=== PATIENT | female | born 1930 | race African-American/Black ===

== ENCOUNTER 2017-02-22 14:26 | Emergency (ER) | payer MEDICARE ==
[2017-02-22 15:26] LABS: BASOPHILS 0.2 % (0-2); EOSINOPHILS 0.7 % (0-7); HEMATOCRIT 39.9 % (36.0-48.0); HEMOGLOBIN 13.1 g/dL (12-16); IMMATURE GRANULOCYTES 0.2 % (0-5); LYMPHOCYTES 28.8 % (15-50); MCH 31.6 pg (26.0-34.0); MCHC 32.8 g/dL (31.0-37.0); MCV 96.4 fL (80.0-100.0); MEAN PLATELET VOLUME 9.6 fL (7.4-10.4); MONOCYTES 3.8 % (2-11); NEUTROPHILS 66.3 % (40-80); RBC 4.14 10x6/uL (4.00-5.40); RDW 13.2 % (11.5-14.5); WBC 4.5 10x3/uL (4.8-10.8)
[2017-02-22 15:33] LABS: PLATELET COUNT 240 10x3/uL (130-400)
[2017-02-22 15:50] LABS: ALBUMIN 4.1 g/dL (3.4-5.0); ANION GAP 11.5 mmol/L (8-16); BILIRUBIN - TOTAL 0.43 mg/dL (0.2-1.3); CALCIUM 10.1 mg/dL (8.5-10.1); CARBON DIOXIDE 30.5 mmol/L (21.0-32.0); CREATININE - SERUM 1.6 mg/dL (0.6-1.3); PROTEIN - SERUM 7.9 g/dL (6.4-8.2)
[2017-02-22 16:17] LABS: APPEARANCE CLEAR (CLEAR); BILIRUBIN NEGATIVE (NEGATIVE); COLOR DK YELLOW (YELLOW); GLUCOSE NEGATIVE (NEGATIVE); KETONE NEGATIVE (NEGATIVE); LEUKOCYTE ESTERASE TRACE (NEGATIVE); NITRITE NEGATIVE (NEGATIVE); PROTEIN NEGATIVE (NEGATIVE); UROBILINOGEN NORMAL (NORMAL)
[2017-02-22 16:18] LABS: BACTERIA FEW /hpf (NONE SEEN); EPITHELIAL CELLS NSEEN /hpf (0-5); MUCUS >1+ /lpf (NONE SEEN); RED CELLS - URINE 0-5 /hpf (0-5); WHITE CELLS - URINE 0-5 /hpf (0-5)
== END 2017-02-22 18:57 | disposition home or self-care (01) ==
LOC: D.ER 14:26
PROVIDERS: Emergency Medicine
DX: E86.0 Dehydration (principal); R53.1 Weakness; I10 Essential (primary) hypertension; R00.1 Bradycardia, unspecified

== ENCOUNTER 2017-03-15 10:56 | Inpatient (IN) | payer MEDICARE ==
[~2017-03-15] VITALS: Ht 162.6 cm; Wt 63.7 kg
[2017-03-15 16:31] VITALS: BP 121/75; BMI 24.5
[2017-03-15 16:54] LABS: BASOPHILS 0.2 % (0-2); EOSINOPHILS 0.7 % (0-7); HEMATOCRIT 39.1 % (36.0-48.0); HEMOGLOBIN 13.1 g/dL (12-16); LYMPHOCYTES 33.9 % (15-50); MCH 31.6 pg (26.0-34.0); MCHC 33.5 g/dL (31.0-37.0); MCV 94.2 fL (80.0-100.0); MEAN PLATELET VOLUME 10.1 fL (7.4-10.4); MONOCYTES 7.9 % (2-11); NEUTROPHILS 57.3 % (40-80); PLATELET COUNT 268 10x3/uL (130-400); RBC 4.15 10x6/uL (4.00-5.40); WBC 5.4 10x3/uL (4.8-10.8)
[2017-03-15 17:05] LABS: ALBUMIN 4.2 g/dL (3.4-5.0); ANION GAP 14.6 mmol/L (8-16); BILIRUBIN - TOTAL 0.44 mg/dL (0.2-1.3); CALCIUM 10.4 mg/dL (8.5-10.1); CARBON DIOXIDE 25.3 mmol/L (21.0-32.0); CHOL - HDL RATIO 2.7 ratio (2.3-4.1); CREATININE - SERUM 1.7 mg/dL (0.6-1.3); HEMOGLOBIN A1C 6.2 % (4.8-6.0); LDL-HDL RATIO 1.4 ratio (1.5-3.5); POTASSIUM - SERUM 3.9 mmol/L (3.5-5.1); PROTEIN - SERUM 7.8 g/dL (6.4-8.2); THYROID STIMULATING HORMONE 1.18 uIU/mL (0.36-3.74)
--- NOTE | 2017-03-15 17:45 | NUR ---
PATIENT ADMITTED FROM HOME APPARENTLY SHE HAS HAD INCREASED CONFUSION, AGGRESSION AND HALLUCINATIONS. PATIENT AMBULATES INDEPENDENTLY. ON ASSESSMENT PATIENT IS ATTENDING TO HER VOICES. WHEN ASKED "WHO ARE YOU SPEAKING TO" PATIENT SAYS "I AM TALKING TO MYSELF" AFTER PATIENT'S FAMILY LEFT AND MANOHAR STARKS THE STOPPER SETTER LEFT THE NURSES STATION PATIENT DID SHOW SOME AGITATION AND IRRITABILITY. RT CAME TO DO AN EKG AND SHE BEHAVED CALMLY, BUT ONCE THIS STAFF WAS ALONE WITH HER SHE AGAIN BECAME AGITATED. SAYING "I AM NOT STAYING HERE, I AM NOT CRAZY" SHE WAS SPEKING TO HER VOICES AND SAYING "THEY THINK I AM CRAZY, BUT I AM NOT" PATIENT DOES PRESENT WITH SOME POOR SHORT TERM MEMORY RECALL. LABS DRAWN AND URINE OBTAINED FOR TESTING AND SENT TO LAB.
[2017-03-15] MEDS ORDERED: PRAVACHOL40 MG PO (17:48)
[2017-03-15] MEDS ORDERED: CARTIA XT240 MG PO (17:49)
[2017-03-15] MEDS ORDERED: ISOSORBIDE MONO30 M1 PO (17:49)
[2017-03-15] MEDS ORDERED: VITAMIN D250000 UNIT PO (17:50)
[2017-03-15] MEDS ORDERED: ARICEPT10 MG PO (17:51)
[2017-03-15] MEDS ORDERED: RESTORIL15 MG PO (17:53)
[2017-03-15] MEDS ORDERED: MULTIPLE VITAMI1 TA1 PO (17:54)
[2017-03-15] MEDS ORDERED: DOXEPIN HCL10 MG PO (17:54)
[2017-03-15] MEDS ORDERED: SUPHEDRINE 12-120 MG PO (17:55)
[2017-03-15] MEDS ORDERED: BAYER CHEWABLE81 MG PO (17:55)
[2017-03-15] MEDS ORDERED: MUCINEX600 MG PO (17:56)
[2017-03-15] MEDS ORDERED: NITROSTAT0.4 MG SL (17:56)
[2017-03-15] MEDS ORDERED: MEGACE400 MG/10 PO (17:58)
[2017-03-15 18:39] LABS: APPEARANCE HAZY (CLEAR); BILIRUBIN NEGATIVE (NEGATIVE); COLOR YELLOW (YELLOW); EPITHELIAL CELLS 0-5 /hpf (0-5); GLUCOSE NEGATIVE (NEGATIVE); KETONE NEGATIVE (NEGATIVE); LEUKOCYTE ESTERASE TRACE (NEGATIVE); NITRITE NEGATIVE (NEGATIVE); PROTEIN 1+ mg/dL (NEGATIVE); SPECIFIC GRAVITY 1.025 (1.005-1.020); UROBILINOGEN NORMAL (NORMAL); WHITE CELLS - URINE 0-5 /hpf (0-5)
[2017-03-15 18:40] LABS: BACTERIA FEW /hpf (NONE SEEN); MUCUS >1+ /lpf (NONE SEEN); RED CELLS - URINE RARE /hpf (0-5)
--- NOTE | 2017-03-15 20:30 | NUR ---
RECEIVED IN DAYROOM SITTING IN RECLINER. AWAKE AND ALERT. CALM AND COOPERATIVE WITH ASSESSMENT. ADMINISTER PRESCRIBED MEDS. COMPLIANT WITH TAKING MEDS. MONITOR FOR SAFETY AND CHANGES. CONTINUE POC.
[2017-03-15 22:04] VITALS: BP 157/82
[2017-03-16 10:16] VITALS: BMI 24.3
[2017-03-16 13:17] VITALS: BMI 24.4
--- NOTE | 2017-03-16 13:43 | NUR ---
Received this am alert and oriented to self only, wandering on unit. Redirect and reorient. Encourage group participation and monitor safety. No evidence of reorientation, patient walks around talking to herself, auditory halluniations that she is attending to. Difficulty to redirect and refocus. Observed group, and refused her lunch. Was cooperative and compliant with medications. Safety maintained. Continue plan of care.
[2017-03-16 19:30] VITALS: BP 117/68
--- NOTE | 2017-03-17 02:06 | NUR ---
B) Recieved patient in the dinning room ambulating independandly, alert and oriented to self, responds to name and follows instructions, wanders at times, I) Administered perscribed medications, monitored for safety, R) Medication compliant, redirects easlily, P) Continue plan of care.
[2017-03-17 06:12] LABS: RAPID PLASMA REAGIN Non Reactive (Non Reactive)
[2017-03-17 07:20] LABS: FOLATE (FOLIC ACID) - SERUM >20.0 ng/mL (>3.0)
[2017-03-17 08:53] VITALS: BP 122/55
--- NOTE | 2017-03-17 11:04 | NUR ---
B) PATIENT AWAKE AND ALERT, SHE WOULD NOT ALLOW STAFF TO BRUSH HER HAIR, SHE IS TALKING AND TALKING TO UNSEEN OTHERS, SHE AMBULATES INDEPENDENTLY. SHE DID NOT EAT HER FOOD, BUT SHE IS DRINKING HER ENSURE. I) PROVIDE PRESCRIBED MEDS. R) PATIENT IS COMPLIANT WITH MEDS, BUT CONTINUES TO TALK TO UNSEEN OTHERS. P) CONTINUE POC.
--- NOTE | 2017-03-17 11:51 | PSY ---
PATIENT NAME:SARAHI GAR MEDICAL RECORD: [id number] : 34 LOCATION:[facility] ADMISSION DATE: 03/15/17 ACCOUNT: [id number] PSYCHIATRIC EVALUATION DATE OF EVALUATION: 03/16/17 Psychiatric Evaluation IDENTIFYING DATA: The patient is 86 years old and she is admitted to the hospital on a voluntary basis. CHIEF COMPLAINT: Agitation. HISTORY OF PRESENT ILLNESS: The patient lives in a local intermediate and has an established diagnosis of dementia. She has recently become acutely worse with a lot of confused, agitated behavior. She has been actively hallucinating, aggressive with staff and paranoid. She has also been very aggressive and disruptive with being redirected. PAST MEDICAL HISTORY: Significant for hypertension. PAST PSYCHIATRIC HISTORY: Significant for dementia. ALLERGIES: SULFA. CURRENT MEDICATIONS: Include Pravachol, isosorbide, Cartia, Aricept, doxepin, aspirin, Sudafed, Mucinex and Megace. FAMILY HISTORY: Unknown. SOCIAL HISTORY: The patient is . She apparently was recently admitted to a intermediate or has been living alone, the story is confusing. Once, the patient says she lives at home alone, but I just cannot envision that given how impaired she is and then there are some notes from the staff indicating that she was admitted to a intermediate and had these kind of agitated behaviors. I am unclear on the history at this point, but it can easily be remedied. It is just that the patient is not reliable, I do not have the resources and she just got here yesterday evening. MENTAL STATUS EXAMINATION: The patient is awake, alert and oriented to person and place, but not to time or situation. Her mood is anxious. Her affect is constricted. Thought processes are disorganized and she is uncooperative with mental status testing, but by inference, I can say her memory, concentration and abstraction abilities are significantly impaired. She denies that she would actively seek to harm herself or others. She also denies overt psychotic symptoms. ASSETS: Supportive family members. LIABILITIES: Limited insight. 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 AXIS II: None. AXIS III: Hypertension and coronary artery disease. AXIS IV: Moderate stressors. AXIS V: Global assessment of functioning is 30. PLAN: At this time, the patient is admitted to the hospital for a comprehensive medical, psychological, and social evaluation. She will be treated with both mood-stabilizing and memory-enhancing medications. Her long-term prognosis is guarded. TRANSINT:[id number] Voice Confirmation ID: [id number] DOCUMENT ID: [id number] LISA MCCONNELL MD at 1151 CC: [id number] DICTATION DATE: 03/16/17 173 BOBCAT DRIVER/LABOR: 03/16/171951 ADM IN [place] [id number] [place] [id number]
--- NOTE | 2017-03-17 13:53 | NUR ---
PATIENT REFUSED LUNCH, SHE WOULD NOT EVEN GO TO THE DINING ROOM. SHE IS STEADILY TALKING AND TALKING TO UNSEEN OTHERS AND IF STAFF ASKE HER WHO SHE IS TALKING TO SHE WILL SAY "MYSELF" BUT PATIENT IS TALKING ALL DAY LONG TO UNSEEN OTHERS.
--- NOTE | 2017-03-17 16:06 | NUR ---
DAUGHTER HERE VISITING AND SHE FOUND FOUR PILLS IN HER MOTHER'S POCKET. SHE WANTS TO PASS IT ON TO EVERYONE TO PLEASE WATCH HER TAKE HER PILLS OR CRUSH THEM IN CHOCOLATE ICE CREAM.
--- NOTE | 2017-03-17 20:45 | NUR ---
RECEIVED IN DINING ROOM. WALKING AROUND TALKING TO UNSEEN PERSON CONSTANTLY. ADMINISTER PRESCRIBED MEDS. VSS, MEDICATION COMPLIANT. RELUCTANT TO GGO TO BED. JUST WANTED TO WALK AROUND UNIT. ARGUEMENTATIVE AT TIMES. CONTINUE PLAN OF CARE.
--- NOTE | 2017-03-18 14:11 | NUR ---
B) PATIENT IS ISOLATING IN DINING AREA, SHE WOULD NOT ALLOW STAFF TO ASSIST HER WITH ADL'S TODAY, SHE REFUSED HER MEDS THIS AM, SHE DID EAT 5% OF LUNCH, DRANK AN ENSURE, MILK AND A LEMON WALKER RIVER DRINK. SHE IS TALKING TO UNSEEN OTHERS. SHE AMBULATES INDEPENDENTLY. I) PROVIDE PRESCRIBED MEDS. R) PATIENT DID NOT TAKE HER AM MEDS. PATIENT IS NOT INTERACTING WITH STAFF OR PEERS. P) CONTINUE POC.
--- NOTE | 2017-03-18 14:20 | NUR ---
PT WAS VERY ANXIOUS BEFORE BREAKFAST AND DID NOT WANT TO LEAVE HER ROOM. PT WAS YELLING AT STAFF AND SAYING THAT SHE WAS NOT READY FOR BREAKFAST AND THAT SHE WAS STAYING IN HER ROOM TODAY. STAFF TRIED MULTIPLE TIMES TO REDIRECT PT AND GET PT TO WALK TO THE DAY ROOM. PT CONTINUED TO DENY AND TRIED TO HIT STAFF WITH HER SHOE. WHEN NURSE CAME IN TO TRY AND REDIRECT- PT TRIED TO HIT NURSE AND CONTINUED TO SCREAM AT STAFF TO GET OUT OF HER ROOM AND THAT SHE WAS NOT LEAVING HER ROOM. PT COULD NOT BE REDIRECTED AND CONTINUED TO SCREAM AT AND TRY TO HIT STAFF WITH HER SHOES AND KICK AND PUNCH AT STAFF. SECURITY WAS CALLED TO HELP ESCORT PT TO THE DAY ROOM. MULTIPLE TIMES ON THE WAY TO DAY ROOM WE OFFERED TO LET PT WALK BY HER SELF AND SHE WOULD AGAIN SWING AT STAFF TRYING TO HIT THEM. ONCE PT WAS IN DAY ROOM SHE CONTINUED TO SCREAM. NURSE TRIED TALKING TO PT AND TO REDIRECT PT. PT COULD NOT BE CALMED DOWN AND CONTINUED TO ESCALTE WITH HER YELLING. PT WAS GIVEN 0.5 MG OF ATIVAN FOR ANXIETY AT 8:50. PT SAT IN RECLINER CHAIR-"NOT RECLINED" AND DID CALM HERSELF DOWN AFTER ABOUT 15 MINUTES. PT HAS CONTINUED TO FUSS UNDER HER BREATH AND COMPLAIN TO UNSEEN OTHERS ABOUT STAFF BUT HAS NOT BEEN YELLING OUT LOUD OR TRYING TO HIT ANYONE ELSE.
--- NOTE | 2017-03-18 17:09 | NUR ---
PATIENTS DAUGHTER CAME TO VISIT AND APPARENTLY PATIENT IS MISSING TWO HANDKERCHIEFS, SHE SAYS SHE IS MISSING A BLACK KNIT TYPE HAT THAT SHE WEARS TO SLEEP IN. THIS NURSE LOOKED THROUGH THE OTHER PATIENTS BELONGINGS, LOOKED THROUGH THE DIRTY LINEN BAGS, LOOKED UNDER PATIENTS MATTRESS. LOOKED IN THE STORAGE ROOM IN HER BIN.
[2017-03-18 21:17] VITALS: BP 154/87
--- NOTE | 2017-03-19 03:42 | NUR ---
B) Recieved patient in the dinning room, alert and oriented to self, ambulate independly, restless and wanders at times, I) Administered perscribed medications, monitored for falls and safety, R) Medication compliant, mild exit seeking, P) Continue plan of care.
[2017-03-19 07:58] VITALS: BP 133/66
--- NOTE | 2017-03-19 12:04 | NUR ---
Patient initially agitated and refusing to get out of bed to go down to dining room, kept refusing and not understanding instructions that were given. Slowly talked with patient and guided her to bathroom patient required step by step instruction on how to pull her pants down and sit on toilet, allowed patient to use restroom, and redirected her to ambulate with staff to dining room, very slow processing of directions without demonstration, demonstrated to patient how to sit in WC, and then patient cooperatative and rolled down to dining room. Patient sat at dining room table refused to eat, refused assistance but did drink an ensure. Redirect and reorient. Monitor safety. Oriented to self only, difficulty with conversation and directions, no evidence of reorientation. Constant talking and attending to unseen person,to point sometimes she is yelling and arguing with them. No aggression toward staff. Safety maintained. Continue plan of care.
--- NOTE | 2017-03-19 13:02 | NUR ---
Patient signs of anxiety AEB: pacing in romero way, banging/puhing on doors and windows, scanning vision and pressured voice also making states to unseen people " I'm going to kill somebody." Prn Ativan 0.5 mg given IM, uncooperativew ith administration by attempting to be combative. Successful injection. Safety maintained and monitored.
--- NOTE | 2017-03-19 13:04 | NUR ---
Paitent sitting in chair, quiet drinking an Ensure, no anxiety assessed no aggression noted. Safety maintained.
--- NOTE | 2017-03-19 14:05 | PN ---
PATIENT:SARAHI GAR MEDICAL RECORD: [id number] LOCATION:[facility] ADMISSION DATE: 03/15/17 PROGRESS NOTE DATE OF SERVICE: 03/17/2017 SUBJECTIVE: The patient's case was discussed with staff. She has no new complaint. OBJECTIVE: The patient is in good behavioral control with poor insight about her condition. She tolerates her medicines reasonably well. She is sleeping well, but not eating at all. She does drink multiple bottles of Ensure each day, but this is hardly adequate. She is taking Megace, which will hopefully stimulate her appetite. She is not in any acute danger, but obviously this is an unsustainable pattern long-term. TRANSINT:[id number] Voice Confirmation ID: [id number] DOCUMENT ID: [id number] LISA MCCONNELL MD at 1405 CC: [id number] DICTATION DATE: 03/17/17 1156 GROUND HOST/HOSTESS: 03/17/17 1204 ADM IN [place] [id number] [place] [address]
--- NOTE | 2017-03-19 17:32 | NUR ---
Patient again with signs of anxiety, pressure escalated voice, scanning vision, and pacing around. Noted to have disrobed in kitchen yelling at unseen people.
--- NOTE | 2017-03-19 19:48 | NUR ---
RECEIVED IN DAYROOM. SITTING IN CHAIR. CALM AND COOPERATIVE WITH CARE AND ASSESSMENTS. CONFUSED. NO SIGNS OF HALLUCINATIONS. REDIRECT AND REORIENT NEEDED. CONTINUES TO SIT QUIETLY AT THIS TIME. CONTINUE PLAN OF CARE
[2017-03-19 20:13] VITALS: BP 114/71
[2017-03-20 07:43] VITALS: BP 126/68
--- NOTE | 2017-03-20 14:44 | PN ---
PATIENT:SARAHI GAR MEDICAL RECORD: [id number] LOCATION:[facility] ADMISSION DATE: 03/15/17 PROGRESS NOTE DATE OF SERVICE: 03/19/2017 SUBJECTIVE: The patient's case was discussed with staff. She has no new complaint. OBJECTIVE: The patient denies intent to harm herself or others. She generally tolerates her medicines well. ASSESSMENT: No change in diagnoses. PLAN: The patient had some active hallucinations and did require p.r.n. medications about an hour and a half before I saw her. At that time, she was actively hallucinating and agitated. The patient is not eating very well. Her sleep is only minimally acceptable. Based on this, I am going to change her antipsychotic medicine from Trilafon to Zyprexa. Hopefully, the Zyprexa will help with her psychotic symptoms and may stimulate her appetite a little. Her long-term prognosis is guarded. Unfortunately, her dementia is advanced. TRANSINT:[id number] Voice Confirmation ID: [id number] DOCUMENT ID: [id number] LISA MCCONNELL MD at 1444 CC: [id number] DICTATION DATE: 03/19/17 1444 HUMAN RESOURCES BENEFITS MANAGER: 03/19/17 1801 ADM IN [place] [id number] [place] [address]
--- NOTE | 2017-03-20 16:27 | NUR ---
Received this am alert and oriented to self only, cooperative with getting up and attending to ADL with assist. Redirect and reorient. Sits in chair talking to unseen person, attending to the hallucinations yelling becoming agitated and angry at times. Briefly diod become combative with activity directornwhsheryl she attempted to groom her after lunch, easily redirected and ceased behavior. No evidence of reorientation, safety maintained. Continue plan of care.
[2017-03-20 19:30] VITALS: BP 135/88
--- NOTE | 2017-03-20 23:06 | NUR ---
RECEIVED IN HALLWAY OUTSIDE OF NURSES STATION. YELLING OUT. COMBATIVE WITH STAFF AND PEERS. ATTEMPT TO REDIRECT AND REORIENT. PRN ATIVAN 0.5 MG AND HALDOL 2 MG IM GIVEN. COOPERATIVE WITH VITALS EXCEPT TEMP. RESTING IN RECLINER AT NURSES STATION AT THIS TIME. CONTINUE PLAN OF CARE
[2017-03-21 08:14] VITALS: BP 102/53
--- NOTE | 2017-03-21 13:41 | NUR ---
Received this am asleep in chery chair, awakes to name. She is sleepy and zayas not stay awake to safely take her medications. Tech attempted to feed her her breakfast, she smiles at tech but barely will eat when feed per staff, chocolate ensure supplement drink given. Tech attempts to give patient a shower, patient did become agitated and combative with showering, following shower, she sat in chery chair and fatmata talked to herself until she went back to sleep. Continues with difficulty with redirection and conversation, refuses attempts to be feed only consuming 10 % Safety maintained. Continue plan of care.
[2017-03-21 20:15] VITALS: BP 137/68
--- NOTE | 2017-03-22 00:36 | NUR ---
B) Recieved patient in her room alert and oriented to self, calm and cooperative, friendly and thankful to staff, I) Administered perscribed medications, monitored for safety and falls, R) Medication compliant, pleasant P) Continue plan of care.
[2017-03-22 13:06] VITALS: BMI 24.3
--- NOTE | 2017-03-22 14:56 | NUR ---
B) PATIENT IS CONFUSED, ORIENTED TO HER NAME, CONTINUES TO TALK TO UNSEEN OTHERS AND GETS IRRITABLE IF SHE IS INTERRUPTED. PATIENT SPILLED AN ENSURE ON HERSELF SHE ACCUSED SOMEONE POURING WATER ON HER, TRIED TO EXPLAIN AND REASON, BUT PATIENT WOULD NOT LISTEN. PATIENT CAN AMBULATE SHE IS UNSTEADY TODAY. I) PROVIDE PRESCRIBED MEDS. R) PATIENT IS COMPLIANT WITH MEDS TODAY. P) CONTINUE POC.
[2017-03-22 19:48] VITALS: BP 140/79
--- NOTE | 2017-03-23 02:03 | NUR ---
B) recieved patient in the day room alert and oriented to self, calm and cooperative with care, I) Administered perscribed medications, monitored for safety, R) Medication compliant, resting quietly, P) Continue plan of care.
--- NOTE | 2017-03-23 13:00 | NUR ---
B) PATIENT IS AWAKE AND SHE IS DRINKING FLUIDS, SHE HAS NOT BEEN TRYING TO FIGHT WITH STAFF, HELD HER AM XANAX SHE HAS BEEN TOO SLEEPY THE PAST COUPLE OF DAYS. I) PROVIDE PRESCERIBED MEDS. R) PATIENT IS COMPLIANT WITH MEDS, STAFF DID CRUSH AND PUT IT IN HER ENSURE. P) CONT POC.
[2017-03-23 15:09] VITALS: BP 117/66
[2017-03-23 19:00] VITALS: BP 127/62
--- NOTE | 2017-03-23 21:50 | NUR ---
ORIENTED TO PERSON ONLY. PT CONTINUES TO HAVE CONVERSATIONS WITH UNSEEN OTHERS. AGITATED DURING ASSESSMENT. REDIRECTED TO REALITY BASED THINKING BUT NO EVIDENCE OF RETAINING. FALL PRECAUTIONS MAINTAINED. WILL CONTINUE TO MONITOR AND CONTINUE WITH PLAN OF CARE.
[2017-03-24 10:42] VITALS: BP 120/51
--- NOTE | 2017-03-24 13:43 | NUR ---
B) PATIENT IS AWAKE, ORIENTED TO SELF ONLY. SHE IS TALKING TO HERSELF AND INTERACTING WITH STAFF AT TIMES. PATIENT HAS WALKED TODAY, BUT TRANSFERS WITH STAFF. SHE DOES NOT FOLLOW DIRECTIONS. I) PROVIDE PRECRIBED MEDS. R) PATIENT IS TAKING HER MEDS CRUSHED IN HER ENSURE. R) PATIENT IS NOT EATING, BUT WILL DRINK. P) CONTINUE POC.
[2017-03-24 19:30] VITALS: BP 102/45
--- NOTE | 2017-03-24 21:00 | NUR ---
RECEIVED IN DAYROOM SITTING IN RECLINER. LETHARGIC, BUT ANSWERS APPROPRIATELY. ADMINISTER MEDS CRUSHED IN APPLESAUCE. MEDICATION COMPLIANT. ASSESSMENT COMMPLETED PER FLOW. NO AGGRESSION NOTED TONIGHT. NIECY CONT POC.
[2017-03-25 07:00] VITALS: BP 126/73
[2017-03-25 19:30] VITALS: BP 141/62
--- NOTE | 2017-03-25 20:36 | NUR ---
PT IS RECEIVED IN W/C AT NURSE STATION. PT IS ALERT AND ORIENTED TO SELF ONLY. PT HAS AUDITORY HALLUCINATIONS AND IS SEEN TALKING TO UNSEEN OTHERS. PT IS REDIRECTED AND REORIENTED NEEDED. PT DENIES PAIN. NO AGGRESSION IS NOTED. PT IS COOPERATIVE WITH STAFF AND IS COMPLIANT WITH MEDS AND CARE. WILL CONTINUE TO MONITOR AND CONTINUE WITH PLAN OF CARE.
--- NOTE | 2017-03-25 20:46 | NUR ---
RECEIVED IN DINING AREA. SITTING IN A WHEELCHAIR. CONFUSED. CALM AND COOPERATIVE WITH CARE AND ASSESSMENTS. CALM AND COOPERATIVE WITH CARE AND ASSESSMENTS. NO SIGNS OF AGGRESSION. TALKS TO SELF CONSTANTLY. REDIECT AND REORIENT NEEDED. CONTINUES TO SIT IN WHEELCAHIR. TALKING TO SELF. CONTINUE PLAN OF CARE
[2017-03-26 10:13] VITALS: BP 117/68
[2017-03-26 16:11] VITALS: Ht 162.6 cm; Wt 63.7 kg
--- NOTE | 2017-03-26 16:12 | NUR ---
ORIENTED TO PERSON ONLY. PT CONTINUES TO TALK TO UNSEEN OTHERS. DIFFICULT TO REDIRECT. CONTINUOUS REDIRECTION DONE WITH NO EVIDENCE OF RETAINING. NO AGGRESSION NOTED. MEDICATIONS GIVEN ORDERED. FALL PRECAUTIONS MAINTAINED. WILL CONTINUE TO MONITOR AND CONTINUE WITH PLAN OF CARE.
[2017-03-26 19:30] VITALS: BP 110/67
--- NOTE | 2017-03-26 20:01 | NUR ---
RECEIVED IN DAYROOM. SITTING IN WHEELCHAIR. CALM AND COOPERATIVE WITH CARE AND ASSESSMENTS. CONFUSED. NO SIGNS OF HALLUCINATIONS. NO SIGNS OF AGGRESSIONS. REDIRECT AND REORIENT NEEDED. CONTINUES TO SIT QUIETLY IN WHEELCHAIR. CONTINUE PLAN OF CARE
--- NOTE | 2017-03-26 22:41 | NUR ---
HIGH ANXIETY, COMBATIVE WITH REDIRECTION. PRN ATIVAN 0.5 MG IM GIVEN
--- NOTE | 2017-03-27 11:06 | NUR ---
B) PATIENT IS AWAKE, BUT SHE DID NOT EAT BREAKFAST, SHE DID EAT ICE CREAM. SHE DID AMBULATE FROM THE DAY ROOM WITH PT AND A WALKER. PATIENT IS CONFUSED. I) PROVIDE PRESCRIBED MEDS. R) PATIENT IS COMPLIANT WITH MEDS CRUSHED IN ICE CREAM. P) CONTINUE POC.
[2017-03-27 11:12] VITALS: BP 104/47
--- NOTE | 2017-03-27 14:49 | NUR ---
Received this am alert and oriented to name only, resting off and on throughtout the morning, did have a prn injection last nigh around 2300. Arouses to name, feed breakfast but only ate very little. Cooperative with physical therapy. No aggression. No evidence of reorientation. Participated in one on one group of singing. Safety maintained. Continue plan of care.
--- NOTE | 2017-03-27 20:07 | NUR ---
RECEIVED IN DAYROOM. SITTING IN A RECLINER SINGING. CALM AND COOPERATIVE WITH CARE AND ASSESSMENTS. NO SIGNS OF HALLUCINATIONS. ENCOURAGE TO EXPRESS NEEDS. REORIENT NEEDED. CONTINUES TO SIT QUIETLY IN RECLINER. CONTINUE PLAN OF CARE
--- NOTE | 2017-03-28 12:12 | NUR ---
PT CONTINUES TO HALLUCINATE AND WAS HEARD TALKING TO UNSEEN OTHERS. ORIENTED TO PERSON ONLY. PT REFUSED HER MEDICATIONS, AND SHE STATED, "I HAVE HAD ENOUGH MEDICATIONS". I EDUCATED ON IMPORTANCE OF MEDICATIONS BUT SHE CONTINUED TO REFUSE. PT IS VERY LETHARGIC AND CONTINUE TO SLEEP BUT SHE DOES WAKEN EASILY. NO AGGREESSION NOTED. FALL PRECAUTIONS MAINTAINED. WILL CONTINUE TO MONITOR AND CONTINUE WITH PLAN OF CARE.
[2017-03-28 19:30] VITALS: BP 135/72
--- NOTE | 2017-03-28 20:30 | NUR ---
RECEIVED IN ROOM LYING IN BED WITH EYES CLOSED. RESPIRATIONS EVEN AND UNLABORED. ASSESSMENT COMPLETED PER FLOW SHEET. REFUSED MEDICATIONS. HALLUCINATIONS LESS. REDIRECT AND AND REORIENT NEEDED. CONTINUE POC.
[2017-03-29 08:00] VITALS: BP 125/71
--- NOTE | 2017-03-29 13:29 | NUR ---
ORIENTED TO PERSON ONLY. PT CONTINUES TO HALLUCINATE BUT THEY HAVE DECREASE IN FREQUENCY. NO AGGRESSION NOTED. PT IS A FEEDER BUT DOES WELL WITH STAFF ASSISTANCE. MEDICATIONS GIVEN ORDERED. FALL PRECAUTIONS MAINTAINED. WILL CONTINUE TO MONITOR AND CONTINUE WITH PLAN OF CARE.
--- NOTE | 2017-03-29 14:02 | NUR ---
Nutrition Follow Up: Pt is eating 14% meal avg on a regular diet. Wt stable. +BM 03/28/17. No new labs to review. Meds noted including LESLI Ramirez. Rec continue current diet. Rec continue appetite stimulant. RD following.
--- NOTE | 2017-03-29 20:29 | NUR ---
RECEIVED PT SITTING IN RECLINER, PT TALKING TO SELF, ORIENTED PT TO PLACE, MARIE VU RN, CHARGE NURSE ADM 2100 MEDS CRUSHED IN APPLE SAUCE, PT COOPERATIVE IN TAKING MEDS, WILL CONTINUE POC
[2017-03-29 21:53] VITALS: BP 118/68
[2017-03-30 07:59] VITALS: BP 131/68
--- NOTE | 2017-03-30 09:30 | NUR ---
ALERT AND ANSWERING QUESTIONS TODAY. NO AGGRESSION NOTED. SITTING IN RECLINER QUIETLY. ADMINISTERED PRESCRIBED MEDS. MEDICATION COMPLIANT. VSS. FALL PRECAUTIONS MAINTAINED. WILL CONTINUE PLAN OF CARE.
--- NOTE | 2017-03-30 10:30 | NUR ---
AMBULATED WELL WITH PHYSICAL THERAPY USING A WALKER.
--- NOTE | 2017-03-30 18:02 | NUR ---
RECEIVED IN DAYROOM AREA. SITTING IN A RECLINER WITH STAFF AT HER SIDE. VERY CONFUSED. TALKING TO HERSELF CONSTANTLY. CALM AND COOPERATIVE WITH CARE AND ASSESSMENTS. NO SIGNS OF AGGRESSION. REDIRECT AND REORIENT NEEDED. CONTINUE PLAN OF CARE
[2017-03-30 19:30] VITALS: BP 153/84
--- NOTE | 2017-03-31 09:41 | NUR ---
PT CONTINUOUSLY MUMBLES TO HERSELF. UPON ASKING HER WHO SHES TALKING TO SHE STATES "IM NOT TALKING TO YOU, SO GO AWAY SO I CAN GO HOME" ATTEMPTED TO REORIENT PT AND SHE VERBALIZED UNDERSTANDING HOWEVER STILL CONTINUES TO MUMBLE TO HERSELF. PT REFUSED TO EAT ANY BREAKFAST AND REFUSED HER MORNING MEDICATIONS. TALKED PT INTO TAKING HER MOST IMPORTANT ONES BEING HER HEART MEDICATIONS HOWEVER SHE ONLY SWALLOWED 3 TOTAL AND REFUSED ANYTHING ELSE. PT SITTING UP IN CHAIR RESTING IN DAYROOM. WILL CTM.
--- NOTE | 2017-03-31 09:44 | NUR ---
CARDIZEM WAS GIVEN HOWEVER COMPUTER FROZE UP AND LOCKED ME OUT AND WILL NOT LET ME DOCUMENT IT AGAIN.
[2017-03-31 09:57] VITALS: BP 133/69
--- NOTE | 2017-03-31 11:05 | NUR ---
PT SITTING UP IN RECLINER IN DAYROOM STILL MUMBLING CONSTANTLY TO HERSELF. REFUSES TO TAKE MEDS STILL AND STATES "GIVE ME BACK MY STUFF SO I CAN GO HOME, IM LEAVING TODAY LADY" WILL CTM.
[2017-03-31 19:30] VITALS: BP 113/69
--- NOTE | 2017-04-01 00:53 | NUR ---
B) Recieved patient in the day room, alert and oriented to self, talks frequently to to unseen others, responds to name, follows instructions, I) Administered perscribed medications, monitored for falls and behaviors, R) Medication compliant, resting quietly now, P) Continue plan of care.
[2017-04-01 07:00] VITALS: BP 111/68
--- NOTE | 2017-04-01 09:30 | NUR ---
RECEIVED IN RECLINER. AWAKE AND ALERT, BUT CONFUSED. ADMINISTER ORDERED MEDICATIONS. NO AGGRESSION NOTED. COMPLIANT WITH TAKING MEDICATIONS. MONITOR FOR FALLS AND SAFETY. WILL CONTINUE PLAN OF CARE.
--- NOTE | 2017-04-01 19:59 | NUR ---
RECEIVED IN DAYROOM. SITTING IN A WHEELCHAIR WITH PEERS AT HER SIDE. NOT SOCIALIZING. CONFUSED. NO SIGNS OF HALLUCIANTIONS. REDIRECT AND REORIENT NEEDED. CONTINUES TO SIT QUIETLY IN DAYROOM. CONTINUE PLAN OF CARE
[2017-04-01 21:39] VITALS: BP 129/58
[2017-04-02 07:00] VITALS: BP 122/58
--- NOTE | 2017-04-02 10:15 | NUR ---
PATIENT REFUSED ALL MEDICATION EXCEPT CARDIZEM.
--- NOTE | 2017-04-02 12:00 | NUR ---
ORIENTED TO PERSON ONLY. PT IS COMBATIVE WITH CARE. YELLING AND CURSING AT STAFF. PT HAS BEEN SEEN TALKING TO UNSEEN OTHERS. REDIRECTED NEEDED BUT NO EVIDENCE OF RETAINING. PT EDUCATED ON APPROPRIATE BEHAVIOR. PT DID TAKE HALF OF HER MEDICATIONS BUT REFUSED THE OTHERS. FALL PRECAUTIONS MAINTAINED. WILL CONTINUE TO MONITOR AND CONTINUE WITH PLAN OF CARE.
--- NOTE | 2017-04-02 19:07 | NUR ---
STACI ADHIKARI CALLED AT 1900 DUE TO PT NOT BREATHING AND NO PULSE. CODE TEAM ARRIVED WITH DR. STONE FROM ED. FAMILY NOTIFIED AND ON THEIR WAY.
--- NOTE | 2017-04-02 19:38 | NUR ---
PT DISCHARGED TO ICU. FAMILY FOLLOWED. FAMILY UPDATED ON PT'S CONDITION.
[2017-04-02] MEDS ORDERED: ABILIFY2 MG PO (21:12)
[2017-04-02] MEDS ORDERED: VITAMIN D5000 UNIT PO (21:16)
[2017-04-02] MEDS ORDERED: TIAZAC/CARDIZE240 M1 PO (21:16)
[2017-04-02] MEDS ORDERED: ARICEPT10 MG PO (21:17)
[2017-04-02] MEDS ORDERED: ISOSORBIDE MONO30 M1 PO (21:18)
[2017-04-02] MEDS ORDERED: MUCINEX600 MG PO (21:18)
[2017-04-02] MEDS ORDERED: MULTI-DAY VITAM1 TAB PO (21:19)
[2017-04-02] MEDS ORDERED: MEGACE40 MG PO (21:19)
[2017-04-02] MEDS ORDERED: PRAVACHOL40 MG PO (21:20)
[2017-04-02] MEDS ORDERED: HALDOL5 MG/ML IM (21:23)
[2017-04-02] MEDS ORDERED: HALOPERIDOL2 MG PO (21:24)
[2017-04-02] MEDS ORDERED: ATIVAN0.5 MG PO (21:25)
[2017-04-02] MEDS ORDERED: ATIVAN2 MG/ML IM (21:26)
[2017-04-02] MEDS ORDERED: NITROSTAT0.4 MG SL ×2 (21:26→21:27)
== END 2017-04-02 19:16 | disposition short-term general hospital (02) | DRG 56 ==
LOC: D.PSYCH 10:56
PROVIDERS: ADMIT Psychiatry & Neurology Psychiatry
PROC: 5A12012 Performance of Cardiac Output, Single, Manual (ICD-10-PCS; principal; 2017-04-02)
PROC: 0BH17EZ Insertion of Endotracheal Airway into Trachea, Via Natural or Artificial Opening (ICD-10-PCS; 2017-04-02)
PROC: 06HM33Z Insertion of Infusion Device into Right Femoral Vein, Percutaneous Approach (ICD-10-PCS; 2017-04-02)
DX: G30.9 Alzheimer's disease, unspecified (principal); I46.9 Cardiac arrest, cause unspecified; F05 Delirium due to known physiological condition; F02.81 Dementia in other diseases classified elsewhere, unspecified severity, with behavioral disturbance; I10 Essential (primary) hypertension; E78.5 Hyperlipidemia, unspecified; E53.8 Deficiency of other specified B group vitamins; E55.9 Vitamin D deficiency, unspecified; I25.10 Atherosclerotic heart disease of native coronary artery without angina pectoris; R63.0 Anorexia; E03.9 Hypothyroidism, unspecified; J44.9 Chronic obstructive pulmonary disease, unspecified; Z72.0 Tobacco use

== ENCOUNTER 2017-04-02 19:47 | Inpatient (IN) | payer MEDICARE ==
[~2017-04-02] VITALS: Ht 162.6 cm; Wt 72.3 kg
--- NOTE | 2017-04-02 19:20 | NUR ---
PT ARRIVED ON UNIT VIA STRETCHER, PLACED ON MONITORS,
--- NOTE | 2017-04-02 19:23 | NUR ---
CODE BLUE CALLED...SEE CODE BLUE SHEET...
--- NOTE | 2017-04-02 19:35 | NUR ---
PT HR NOW IN THE 70"S, FAMILY UPDATED AND AT BEDSIDE,
[~2017-04-02 19:47] MED LIST: ARICEPT10 MG PO; BAYER CHEWABLE81 MG PO; CARTIA XT240 MG PO; DOXEPIN HCL10 MG PO; ISOSORBIDE MONO30 M1 PO; MEGACE400 MG/10 PO; MUCINEX600 MG PO; MULTIPLE VITAMI1 TA1 PO; NITROSTAT0.4 MG SL; PRAVACHOL40 MG PO; RESTORIL15 MG PO; SUPHEDRINE 12-120 MG PO; VITAMIN D250000 UNIT PO
[2017-04-02 19:55] VITALS: BP 164/64; Ht 162.6 cm; Wt 72.3 kg
--- NOTE | 2017-04-02 19:55 | NUR ---
PT HR DROPPING AT THIS TIME, FAMILY DOESN'T WANT ANYTHING ELSE AT THIS TIME
--- NOTE | 2017-04-02 20:05 | NUR ---
PT ASYSTOLE ON THE MONITOR, FAMILY AT BEDSIDE,
--- NOTE | 2017-04-02 20:10 | NUR ---
DR. JONES AT BEDSIDE TO PRONOUNCE
--- NOTE | 2017-04-02 20:20 | NUR ---
MANUFACTURING TEST TECHNICIAN PAMELA MARCUM NOTIFIED OF PT , OK TO RELEASE BODY TO HOME
--- NOTE | 2017-04-02 20:40 | NUR ---
[facility] NOTIFIED OF PT
--- NOTE | 2017-04-02 20:45 | NUR ---
DR. BRADLEY AT BEDSIDE, SPOKE WITH FAMILY
--- NOTE | 2017-04-02 21:10 | NUR ---
[facility] NOTIFIED
[2017-04-02] MEDS ORDERED: ABILIFY2 MG PO (21:12)
[2017-04-02] MEDS ORDERED: VITAMIN D5000 UNIT PO (21:16)
[2017-04-02] MEDS ORDERED: TIAZAC/CARDIZE240 M1 PO (21:16)
[2017-04-02] MEDS ORDERED: ARICEPT10 MG PO (21:17)
[2017-04-02] MEDS ORDERED: MUCINEX600 MG PO (21:18)
[2017-04-02] MEDS ORDERED: ISOSORBIDE MONO30 M1 PO (21:18)
[2017-04-02] MEDS ORDERED: MULTI-DAY VITAM1 TAB PO (21:19)
[2017-04-02] MEDS ORDERED: MEGACE40 MG PO (21:19)
[2017-04-02] MEDS ORDERED: PRAVACHOL40 MG PO (21:20)
[2017-04-02] MEDS ORDERED: HALDOL5 MG/ML IM (21:23)
[2017-04-02] MEDS ORDERED: HALOPERIDOL2 MG PO (21:24)
[2017-04-02] MEDS ORDERED: ATIVAN0.5 MG PO (21:25)
[2017-04-02] MEDS ORDERED: NITROSTAT0.4 MG SL ×2 (21:26→21:27)
[2017-04-02] MEDS ORDERED: ATIVAN2 MG/ML IM (21:26)
--- NOTE | 2017-04-02 22:15 | NUR ---
HOME HERE FOR PT
== END 2017-04-02 20:10 | DRG 298 ==
LOC: D.ICU 19:47
PROVIDERS: ADMIT Family Medicine
PROC: 5A1935Z Respiratory Ventilation, Less than 24 Consecutive Hours (ICD-10-PCS; principal; 2017-04-02)
DX: I46.9 Cardiac arrest, cause unspecified (principal)